=== PATIENT | female | born 1950 | race Caucasian/White ===

== ENCOUNTER 2018-07-24 08:21 | Emergency (ER) | payer MEDICARE, BC ==
[2018-07-24 08:49] VITALS: BP 122/56
[2018-07-24] MEDS ORDERED: predniSONE TAB* 20 MG PO ONE (09:07)
[2018-07-24] MEDS ORDERED: Albuterol/Ipratropium NEB.SOL* Albuterol 2.5 MG/Ipratropium 0.5 MG 3 ML INH ONE (09:07)
--- NOTE | 2018-07-24 09:28 | ED ---
Respiratory - HPI Summary HPI Summary: 68 yr old female with the complaint of nasal congestion, post nasal drip, sinus pressure, coughing, wheezing. She has a history of COPD. She is coughing up yellow sputum. She denies chest pain. She has a history of lung cancer cured by lung resection 10 years ago. She denies chest pain. Her symptoms are moderate. Her symptoms began a week ago. - History of Current Complaint Chief Complaint: UCRespiratory Stated Complaint: COUGH, CONGESTION Time Seen by Provider: 07/24/18 09:03 Pain Intensity: 0 - Allergy/Home Medications Allergies/Adverse Reactions: Allergies Allergy/AdvReac Type Severity Reaction Status Date / Time No Known Allergies Allergy Verified 07/24/18 08:49 Home Medications: Home Medications Albuterol 2.5MG/3ML (0.083%)* [Ventolin 2.5 MG/3 ML NEB.CARY*] 2.5 mg INH Q4H PRN 07/24/18 [History Confirmed 07/24/18] Aspirin [David Aspirin EC Low Dose 81 MG] 81 mg PO QAM 07/24/18 [History Confirmed 07/24/18] Atorvastatin* [Lipitor*] 40 mg PO QPM 07/24/18 [History Confirmed 07/24/18] Budesonide/Formote 80/4.5(NF) [Symbicort 80/4.5 (NF)] 2 puff INH BID 07/24/18 [ History Confirmed 07/24/18] Fluticasone NASAL SPRAY 50MCG* [Flonase NASAL SPRAY 50MCG*] 2 spray BOTH NARES DAILY 07/24/18 [History Confirmed 07/24/18] Guaifenesin/Dextromethorphan [Mucinex Dm Maximum Streng 60-1200 mg] 1 tab PO Q12H PRN 07/24/18 [History Confirmed 07/24/18] Levocetirizine Dihydrochloride [Levocetirizine Dihydrochl] 5 mg PO DAILY PRN 06/01 [History Confirmed 07/24/18] Meclizine TAB* [Antivert 12.5 TAB*] 25 mg PO Q24H PRN 07/24/18 [History Confirmed 07/24/18] Metoprolol Succinate [Metoprolol Succinate ER] 12.5 mg PO QAM 07/24/18 [History Confirmed 07/24/18] Mv-Mn/Folic Acid/Calcium/Vit K [Women's 50 Plus Multivit Tab] 1 each PO QAM 06/01 [History Confirmed 07/24/18] Pro Air 2 puff INH Q4H PRN 07/24/18 [History Confirmed 07/24/18] amLODIPine TAB* [Norvasc 5 mg TAB*] 10 mg PO QAM 07/24/18 [History Confirmed 06/01] PMH/Surg Hx/FS Hx/Imm Hx Cardiovascular History: Reports: Hx Hypertension Respiratory History: Reports: Hx Chronic Obstructive Pulmonary Disease (COPD), Other Respiratory Problems/Disorders - HX LUNG CA - Cancer History Cancer Type, Location and Year: lung - Surgical History Surgery Procedure, Year, and Place: right lung 2009, benign neck lump 2010, cardiac ablation 2009; right MCL tear 2010 Infectious Disease History: Yes Infectious Disease History: Denies: Traveled Outside the [place] in Last 30 Days - Family History Known Family History: Positive: None - Social History Occupation: Retired Alcohol Use: Occasionally Substance Use Type: Reports: None Smoking Status (MU): Former Smoker Review of Systems Constitutional: Negative Positive: Nasal Discharge Positive: Cough All Other Systems Reviewed And Are Negative: Yes Physical Exam Triage Information Reviewed: Yes Vital Signs On Initial Exam: Initial Vitals Temp Pulse Resp BP Pulse Ox 99.1 F 79 20 122/56 99 07/24/18 08:42 07/24/18 08:42 07/24/18 08:42 07/24/18 08:42 07/24/18 08:42 Vital Signs Reviewed: Yes Appearance: Positive: Well-Appearing, No Pain Distress Skin: Positive: Warm, Skin Color Reflects Adequate Perfusion Head/Face: Positive: Normal Head/Face Inspection Eyes: Positive: EOMI ENT: Positive: Pharyngeal erythema, Nasal congestion, TMs normal, Sinus tenderness Neck: Positive: Nontender Respiratory/Lung Sounds: Positive: Wheezes - bilateral exp wheezes Cardiovascular: Positive: RRR. Negative: Murmur Abdomen Description: Negative: Distended Musculoskeletal: Positive: Strength/ROM Intact Neurological: Positive: Sensory/Motor Intact, Alert, Oriented to Person Place, Time, CN Intact II-III Psychiatric: Positive: Normal Diagnostics - Vital Signs Vital Signs Temp Pulse Resp BP Pulse Ox 07/24/18 08:42 99.1 F 79 20 122/56 99 - Laboratory Lab Statement: Any lab studies that have been ordered have been reviewed, and results considered in the medical decision making process. - Radiology chest pa lat Radiology Interpretation Completed By: Radiologist - NAD, hyperinflation copd Re-Evaluation - Re-Evaluation First Eval Re-Evaluation Time: 09:29 Change: Improved - improved with ease of breathing after neb. Disposition - Course Course Of Treatment: 68 yr old with copd exacerbation and sinusitis. Rx with cefdinir, prednisone, and albuterol - Diagnoses Provider Diagnoses: Sinusitis, COPD exacerbation Discharge - Sign-Out/Discharge Documenting (check all that apply): Patient Departure All imaging exams completed and their final reports reviewed: Yes - Discharge Plan Condition: Good Disposition: HOME Prescriptions: Albuterol HFA INHALER* [Ventolin HFA Inhaler*] 1 - 2 puff INH Q4H PRN #1 mdi PRN Reason: Cough Cefdinir [Cefdinir 300 MG CAP] 300 mg PO BID #20 cap predniSONE TAB* [Deltasone 20 MG TAB*] 40 mg PO DAILY #8 tab Patient Education Materials: Sinusitis (ED), COPD (Chronic Obstructive Pulmonary Disease) (DC) Referrals: Uziel Brantley MD [Primary Care Provider] - 3 Days - Billing Disposition and Condition Condition: GOOD Disposition: Home
== END 2018-07-24 09:35 | disposition home or self-care (01) ==
LOC: UCCORT 08:21
DX: J32.9 Chronic sinusitis, unspecified (principal); J44.1 Chronic obstructive pulmonary disease with (acute) exacerbation; Z85.118 Personal history of other malignant neoplasm of bronchus and lung; I10 Essential (primary) hypertension; Z87.891 Personal history of nicotine dependence
CPT/HCPCS: 71046; 99202; A9270-GY; G0463; J7512